=== PATIENT | male | born 1980 | race Caucasian/White ===

== ENCOUNTER 2021-04-02 13:34 | Emergency (ER) | payer OTHER ==
[2021-04-02] MEDS ORDERED: Boostrix 0.5 ML (Tdap) VIAL ONE (13:56)
[2021-04-02] MEDS ORDERED: Lidocaine 1% w/Epinephrine 1:100K 20 ML VIAL ONE (13:56)
== END 2021-04-02 14:28 | disposition home or self-care (01) ==
LOC: MADERS 13:34
DX: S41.112A Laceration without foreign body of left upper arm, initial encounter (principal); F17.220 Nicotine dependence, chewing tobacco, uncomplicated; W26.9XXA Contact with unspecified sharp object(s), initial encounter; Y99.0 Civilian activity done for income or pay
CPT/HCPCS: 12002; 90471; 90715